=== PATIENT | female | born 2000 | race Two or more races ===

== ENCOUNTER 2024-10-08 00:20 | Inpatient (IN) ==
[2024-10-08 00:38] VITALS: BMI 36.6
[2024-10-08 00:58] LABS: BLOOD/HEMOGLOBIN,URINE NEGATIVE (NEGATIVE); LEUKOCYTE ESTERASE ,URINE NEGATIVE (NEGATIVE); NITRITES,URINE NEGATIVE (NEGATIVE)
[2024-10-08 01:02] LABS: AMNISURE ROM TEST NO MEMBRANES RUPTURE (NO RUPTURE); APPEARANCE,URINE CLEAR (CLEAR)
[2024-10-08 01:03] LABS: SQUAMOUS EPITHELIAL CELL,UR RARE /HPF (NEGATIVE)
[2024-10-08] MEDS ORDERED: ZOFRAN INJ 4 MG VIAL IVP PRN (01:07)
[2024-10-08] MEDS ORDERED: OXYTOCIN 20 UNIT/1,000 ML-NS 20 UNIT/1,000 ML PLAST..BAG IV PRN (01:07)
[2024-10-08] MEDS ORDERED: REGLAN INJ 10 MG VIAL IVP PRN (01:07)
[2024-10-08] MEDS: LR 1,000 ML IV 1,000 ML IV SCH (01:40)
[2024-10-08] MEDS: AMPICILLIN VIAL 2 GRAM 2 G in NS 100 ML IV + SPIKE MINIBAG* 100 ML IV SCH (01:41)
[2024-10-08 01:44] LABS: MEAN PLATELET VOLUME 11.4 fL (7.4-11.0); RED CELL DISTRIBUTION WIDTH 15.0 % (11.6-16.5)
[2024-10-08 01:52] LABS: CREATININE 0.67 mg/dL (0.55-1.02); eGFR NON BLACK RACES > 60 (>60)
[2024-10-08] MEDS: NUBAIN INJ 20 MG AMP IVP PRN (02:01)
[2024-10-08] MEDS: NS 100 ML IV 100 ML ONE (02:21)
[2024-10-08] MEDS: AMPICILLIN VIAL 2 GRAM ONE (02:21)
[2024-10-08] MEDS ORDERED: PITOCIN ONE (02:29)
[2024-10-08] MEDS: BETADINE SOLN ONE (02:35)
[2024-10-08] MEDS: OXYTOCIN 20 UNIT/1,000 ML-NS 20 UNIT/1,000 ML PLAST..BAG IV SCH (02:50)
[2024-10-08] MEDS: PITOCIN IVP ONE (02:50)
[2024-10-08] MEDS: XYLOCAINE 1 % (PLAIN) ONE (02:50)
[2024-10-08] MEDS ORDERED: AMBIEN PO PRN (03:57)
[2024-10-08] MEDS ORDERED: MILK OF MAGNESIA PO PRN (03:57)
[2024-10-08] MEDS: NUBAIN INJ 10 MG AMP ONE (04:02)
[2024-10-08] MEDS: MOTRIN TAB 800 MG PO PRN (04:42)
[2024-10-08] MEDS ORDERED: AMPICILLIN VIAL 1 GRAM 1 G in NS 50 ML IV + SPIKE MINIBAG* 50 ML IV SCH (06:00)
[2024-10-08] MEDS: PRENATAL PLUS PO SCH (08:38)
[2024-10-08] MEDS: ADACEL or BOOSTRIX TDaP VACCINE IM ONE (13:02)
[2024-10-08] MEDS: DERMOPLAST PAIN RELIEF SPRAY TOP PRN (15:17)
[2024-10-09 11:12] VITALS: BP 142/64; PULSE 63; RESP 21; TEMP 98.8; O2SAT 92
== END 2024-10-09 12:05 | disposition home or self-care (01) | DRG 807 ==
LOC: ER 00:20 → LD 01:07 → MED/SURG 03:54
PROVIDERS: ADMIT Obstetrics & Gynecology Obstetrics; ATTEND Obstetrics & Gynecology Obstetrics